=== PATIENT | female | born 1940 | race Two or more races ===

== ENCOUNTER 2018-05-07 20:24 | Emergency (ER) | payer MEDICARE, BC ==
[~2018-05-07] VITALS: Ht 165.1 cm; Wt 74.8 kg
[2018-05-07] MEDS ORDERED: ALPR0.255 PO (20:41)
[2018-05-07] MEDS ORDERED: METO100T7 PO (20:41)
[2018-05-07] MEDS ORDERED: DULO20CA PO (20:41)
[2018-05-07] MEDS ORDERED: PANT40TA4 PO (20:41)
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
[2018-05-07] MEDS ORDERED: ONDANSETRON 4 MG/2 ML VIAL ONE (21:14)
[2018-05-07] MEDS ORDERED: MORPHINE SULFATE 4 MG/1 ML DISP.SYRIN ONE ×2 (21:14→21:59)
[2018-05-07] MEDS ORDERED: ONDANSETRON 4 MG/2 ML VIAL IM ONE (21:15)
[2018-05-07] MEDS ORDERED: MORPHINE SULFATE 4 MG/1 ML DISP.SYRIN IM ONE ×2 (21:15→22:00)
[2018-05-07] MEDS ORDERED: TDAP DIPH,PERTUSS,TET VAC/PF 0.5 ML DISP.SYRIN IM ONE ×2 (21:45)
[2018-05-07] MEDS ORDERED: NEOMY/BACITRA/POLYMYXIN B OINT UD PACKET TP ONE ×2 (22:00→22:16)
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
--- NOTE | 2018-05-07 22:45 | NUR ---
Patient discharged to home in stable conditon. Written and verbal after care instructions given. Patient verbalizes understanding of instructions. PT D/C W/ PRESCRIPTIONS. ALL BELONGINGS W/ PT. PT SELF-AMBULATED W/O DIFFICULTY. REFERRAL TO [facility] PROVIDED. PT STATES HE WILL TAKE UBER BACK HOME.
[2018-05-07 22:48] VITALS: BP 150/82
== END 2018-05-07 22:50 | disposition home or self-care (01) ==
LOC: ER 20:29
DX: T22.241A Burn of second degree of right axilla, initial encounter (principal); I10 Essential (primary) hypertension; Z88.0 Allergy status to penicillin; Z88.2 Allergy status to sulfonamides; X19.XXXA Contact with other heat and hot substances, initial encounter; Y93.89 Activity, other specified; Y92.89 Other specified places as the place of occurrence of the external cause; Y99.8 Other external cause status
CPT/HCPCS: 16020; 90471; 90715; 96372 ×3; 99284; J2270 ×2; J2405; A4663